=== PATIENT | female | born 1960 | race Hispanic/Latino ===

== ENCOUNTER 2023-03-29 16:12 | Emergency (ER) | payer OTHER ==
[~2023-03-29] VITALS: Ht 157.5 cm; Wt 63.5 kg
[2023-03-29 16:22] VITALS: BP 148/91; PULSE 90; RESP 16; O2SAT 100
== END 2023-03-29 18:54 | disposition home or self-care (01) ==
LOC: EDH 16:12
DX: K06.8 Other specified disorders of gingiva and edentulous alveolar ridge (principal)